=== PATIENT | female | born 1945 | race Caucasian/White ===

== ENCOUNTER 2024-01-14 12:00 | Observation (INO) | payer MEDICARE ==
[~2024-01-14] VITALS: Ht 165.1 cm; Wt 80.9 kg
[2024-01-14 12:41] LABS: BASOPHILS # (AUTO) 0.04 K/uL (0.00-0.20); BASOPHILS % (AUTO) 0.5 % (0.0-5.0); EOSINOPHILS # (AUTO) 0.23 K/uL (0.00-0.70); HEMATOCRIT 36.9 % (36-48); IMMATURE GRANULOCYTE ABSOLUTE 0.03 K/uL (0-1); LYMPHOCYTES % (AUTO) 38.5 % (21.0-51.0); MEAN CORPUSCULAR HEMOGLOBIN 32.7 pg (27.0-33.0); MEAN CORPUSCULAR HGB CONC 35.2 g/dL (32.0-36.0); MEAN CORPUSCULAR VOLUME 92.7 fL (79-99); MONOCYTES # (AUTO) 0.6 K/uL (0.1-1.0); MONOCYTES % (AUTO) 7.6 % (3.0-13.0); NEUTROPHILS # (AUTO) 3.9 K/uL (1.8-7.7); PLATELET COUNT (AUTO) 198 K/uL (130-400); RED BLOOD CELL COUNT(AUTO) 3.98 MIL/uL (4.00-5.50); RED CELL DISTRIBUTION WIDTH 12.4 % (11.0-15.5); WHITE BLOOD COUNT (AUTO) 7.7 K/uL (4.8-10.8)
[2024-01-14 12:55] LABS: ALBUMIN 3.7 g/dL (3.5-5.0); CREATININE 0.9 mg/dL (0.5-1.0); INR 0.96 (0.85-1.15); POTASSIUM 3.4 mmol/L (3.5-5.1); PROTHROMBIN TIME 10.4 SEC (9.6-11.6)
[2024-01-14 12:56] LABS: PARTIAL THROMBOPLASTIN TIME 30.8 SEC (26.3-35.5)
[2024-01-14 12:59] LABS: APPEARANCE,URINE CLEAR (CLEAR); BILIRUBIN,URINE NEGATIVE (NEGATIVE); COLOR,URINE YELLOW (YELLOW); GLUCOSE, URINE (UA) NEGATIVE (NEGATIVE); KETONES,URINE NEGATIVE (NEGATIVE); LEUKOCYTE ESTERASE ,URINE NEGATIVE Leu/uL (NEGATIVE); NITRATE,URINE NEGATIVE (NEGATIVE); OCCULT BLOOD,URINE NEGATIVE (NEGATIVE); PH,URINE 6.5 (5.0-8.0); PROTEIN,URINE 10 mg/dL (NEGATIVE); UROBILINOGEN,URINE 0.2 mg/dL (0.2-1.0)
[2024-01-14 13:00] VITALS: BP 145/58; PULSE 62; RESP 18
[2024-01-14 13:04] LABS: ADD UA MICROSCOPIC YES
[2024-01-14 13:08] LABS: MUCUS,URINE RARE LPF (None Seen); SQUAMOUS EPITHELIAL CELL,UR RARE /HPF (0-2)
[2024-01-14] MEDS ORDERED: ASCO500T20 PO (14:04)
[2024-01-14] MEDS ORDERED: ALPR0.255 PO (14:04)
[2024-01-14] MEDS ORDERED: OMEP20CA12 PO (14:04)
[2024-01-14] MEDS ORDERED: ATOR40TA71 PO (14:04)
[2024-01-14] MEDS ORDERED: ACET-2743 PO (14:04)
[2024-01-14] MEDS ORDERED: PROP40TA7 PO (14:04)
[2024-01-14] MEDS ORDERED: HYDR25TA PO (14:04)
[2024-01-14] MEDS ORDERED: CALC1TAB2 PO (14:04)
[2024-01-14] MEDS ORDERED: DICL100G60 TP (14:04)
[2024-01-14] MEDS ORDERED: ESCI-8 PO (14:04)
[2024-01-14] MEDS ORDERED: ACET-3540 PO (14:04)
[2024-01-14] MEDS ORDERED: ASPI-1443 PO (14:04)
[2024-01-14] MEDS ORDERED: NABU-141 PO (14:04)
[2024-01-16] VITALS (34 sets, daily range): BP systolic 97–159; BP diastolic 43–80; PULSE 46–78; RESP 13–20; O2SAT 98
[2024-01-16] MEDS: FAMOTIDINE 20MG VIAL IV ONE (06:45)
[2024-01-16] MEDS: acetaMINOPHEN 1,000 MG/100 ML VIAL IV ONE (06:45)
[2024-01-16] MEDS ORDERED: KETAMINE 50MG/ML SYRINGE 50 MG/ML DISP.SYRIN ONE (06:48)
[2024-01-16] MEDS ORDERED: FENTANYL CITRATE PF 50 MCG/1 ML 2ML VIAL ONE (06:55)
[2024-01-16] MEDS ORDERED: LIDOCAINE PF 100MG/5ML (2%) SYRINGE 5ML ONE (06:55)
[2024-01-16] MEDS ORDERED: PROPOFOL 10 MG/ML 20ML VIAL IV ONE (06:55)
[2024-01-16] MEDS ORDERED: ROCURONIUM BROMIDE 10MG/1ML 5ML VL ONE (06:55)
[2024-01-16] MEDS: CLINDAMYCIN 900MG/6ML INJ IVPB ONE (08:00)
[2024-01-16] MEDS: CLINDAMYCIN IVPB 900MG/50ML 0 ML IV ONE (08:04)
[2024-01-16] MEDS: CLINDAMYCIN IVPB 900MG/50ML 50 ML IV ONE (08:04)
[2024-01-16] MEDS: ceFAZolin SODIUM 2 GM VIAL ONE (08:05)
[2024-01-16] MEDS: LACTATED RINGERS 1000ML 1,000 ML IV ONE (08:05)
[2024-01-16] MEDS ORDERED: ONDANSETRON 4MG INJ ONE (08:14)
[2024-01-16] MEDS ORDERED: DEXAMETHASONE SOD PHOSPHATE 10MG/ML 1ML VIAL ONE (08:14)
[2024-01-16] MEDS ORDERED: GLYCOPYRROLATE 0.2 MG/ML 5 ML VIAL ONE (08:20)
[2024-01-16] MEDS ORDERED: EPHEDRINE SULFATE 50 MG/ML AMPULE ONE (08:22)
[2024-01-16] MEDS: TRANEXAMIC ACID 1000MG/10ML ONE (08:25)
[2024-01-16] MEDS: KETOROLAC 30MG VIAL (30MG/ML) ONE (09:15)
[2024-01-16] MEDS: ROPivacaine 0.5% 5MG/ML 30ML ONE (09:15)
[2024-01-16] MEDS ORDERED: CYCLOBENZAPRINE HCL 10 MG TABLET PO PRN (10:00)
[2024-01-16] MEDS ORDERED: FERROUS FUMARATE 324 MG TABLET PO PRN (10:00)
[2024-01-16] MEDS: TRANEXAMIC ACID 1000MG/10ML IV ONE (10:00)
[2024-01-16] MEDS ORDERED: POTASSIUM CHLORIDE 10% ELIXIR 20 MEQ/15 ML UDCUP PO PRN (10:00)
[2024-01-16] MEDS ORDERED: POTASSIUM CHLORIDE 20MEQ/100ML 100 ML IV PRN (10:00)
[2024-01-16] MEDS ORDERED: ONDANSETRON 4MG INJ IVP PRN (10:00)
[2024-01-16] MEDS ORDERED: CALCIUM CARB 500MG PO PRN (10:00)
[2024-01-16] MEDS: KETOROLAC 15MG/ML VIAL (15MG/ML) IV SCH (10:48)
[2024-01-16] MEDS: KETOROLAC 15MG/ML VIAL (15MG/ML) ONE (10:48)
[2024-01-16] MEDS: TRAMADOL HCL 50 MG TABLET PO PRN (12:52)
[2024-01-16] MEDS: GABAPENTIN 100 MG CAPSULE PO SCH (12:52)
[2024-01-16] MEDS: TRAMADOL HCL 50 MG TABLET ONE (12:54)
[2024-01-16] MEDS: GABAPENTIN 100 MG CAPSULE ONE (12:54)
[2024-01-16] MEDS: 0.9%NACL 1000ML 1,000 ML IV SCH (14:00)
[2024-01-16] MEDS: KETOROLAC 15MG/ML VIAL (15MG/ML) IV PRN (14:30)
[2024-01-16] MEDS ORDERED: NON-FORMULARY MEDICATION 1 EACH (Omeprazole 20 MG) PO PRN (15:00)
[2024-01-16] MEDS: CLINDAMYCIN IVPB 900MG/50ML 50 ML IV SCH (15:52)
[2024-01-16] MEDS: HYDROCODONE/ACETAMINOPHEN 5/325 MG TAB PO PRN (16:47)
[2024-01-16] MEDS: ATORVASTATIN 40 MG TABLET PO SCH (21:09)
[2024-01-16] MEDS: DOCUSATE SODIUM 100 MG CAP PO SCH (21:09)
[2024-01-17] VITALS: BP 117/70; PULSE 60; RESP 20
[2024-01-17 04:00] VITALS: BP 107/50; PULSE 58; RESP 20
[2024-01-17 04:41] LABS: HEMATOCRIT 30.5 % (36-48); MEAN CORPUSCULAR HEMOGLOBIN 33.2 pg (27.0-33.0); MEAN CORPUSCULAR HGB CONC 35.1 g/dL (32.0-36.0); MEAN CORPUSCULAR VOLUME 94.7 fL (79-99); RED BLOOD CELL COUNT(AUTO) 3.22 MIL/uL (4.00-5.50); RED CELL DISTRIBUTION WIDTH 12.4 % (11.0-15.5); WHITE BLOOD COUNT (AUTO) 11.8 K/uL (4.8-10.8)
[2024-01-17 04:55] LABS: CREATININE 1.1 mg/dL (0.5-1.0); POTASSIUM 3.6 mmol/L (3.5-5.1)
[2024-01-17] MEDS: KCL 20 MEQ ERTAB PO PRN (06:40)
[2024-01-17 07:56] VITALS: BP 123/48; PULSE 60; RESP 18
[2024-01-17 08:00] VITALS: O2SAT 96
[2024-01-17] MEDS: HYDROCHLOROTHIAZIDE 25 MG TABLET PO SCH (08:23)
[2024-01-17] MEDS: ASCORBIC ACID 500 MG TAB PO SCH (08:23)
[2024-01-17] MEDS: ASPIRIN 325MG EC TAB PO SCH (08:24)
[2024-01-17] MEDS: PANTOPRAZOLE 40 MG TAB DR PO SCH (08:24)
[2024-01-17] MEDS: PROPRANOLOL HCL 20 MG TAB PO SCH (08:24)
[2024-01-17] MEDS: POLYETHYLENE GLYCOL 3350 17 GM POWD.PACK PO SCH (08:25)
[2024-01-17] MEDS: VITAMIN D3 PO SCH (08:30)
[2024-01-17] MEDS: Escitalopram Oxalate 10 MG PO SCH (08:30)
[2024-01-17] MEDS: CALCIUM CARBONATE PO SCH (08:30)
[2024-01-17] MEDS ORDERED: NON-FORMULARY MEDICATION 1 EACH (Propranolol HCl 40 MG) PO SCH (09:00)
[2024-01-17 11:23] VITALS: BP 109/55; PULSE 59; RESP 18
[2024-01-17 16:46] VITALS: BP 101/50; PULSE 58; RESP 16
[2024-01-17] MEDS ORDERED: DOCU-116 PO (16:58)
[2024-01-17] MEDS ORDERED: HYDR-4060 PO (16:58)
[2024-01-17] MEDS ORDERED: ASPI-891 PO (16:58)
[2024-01-17] MEDS ORDERED: CYCL-309 PO (16:58)
[2024-01-17] MEDS ORDERED: GABA100C PO (16:58)
[2024-01-19] MEDS ORDERED: BisaCODYL 10 MG SUPP.RECT RC PRN (10:00)
== END 2024-01-17 18:15 | disposition home health service (06) ==
LOC: DAHIP 01-16 05:44 → 4AH 01-16 13:40
PROVIDERS: ADMIT Student in an Organized Health Care Education/Training Program; ATTEND Student in an Organized Health Care Education/Training Program
DX: M17.11 Unilateral primary osteoarthritis, right knee (principal); G89.18 Other acute postprocedural pain; I10 Essential (primary) hypertension; E78.5 Hyperlipidemia, unspecified; K21.9 Gastro-esophageal reflux disease without esophagitis; G43.909 Migraine, unspecified, not intractable, without status migrainosus; Z86.2 Personal history of diseases of the blood and blood-forming organs and certain disorders involving the immune mechanism; Z79.899 Other long term (current) drug therapy; Z86.73 Personal history of transient ischemic attack (TIA), and cerebral infarction without residual deficits; Z90.710 Acquired absence of both cervix and uterus
CPT/HCPCS: 82040; 80048 ×2; 85025; 85610; 85730; 87086; 84134; 86140; 81001; 36415 ×2; 87641; 64447; 96376 ×2; 96365; 96375; 27447; 73560; 97161; 97116 ×3; 97530 ×4; 96366; 85027; G0378 ×27; A9270; A4223 ×3; A4663; J7030; A4215 ×2; J7120; J3490 ×11; J3010; J1100; J2001; J2704; J2405; J1885 ×5; J2795; C1713 ×2; G0168; C1776 ×2; A4649 ×4; A4930; A6255; A5120; A4657; A4222; A4221; A4216; G0379; J0690

== ENCOUNTER 2025-05-25 15:03 | Emergency (ER) | payer MEDICARE ==
[~2025-05-25] VITALS: Ht 165.1 cm; Wt 79.4 kg
[~2025-05-25 15:03] MED LIST: ALPR0.255 PO; ASCO500T20 PO; ASPI-891 PO; ATOR40TA71 PO; CALC1TAB2 PO; CYCL-309 PO; DICL100G60 TP; DOCU-116 PO; ESCI-8 PO; GABA100C PO; HYDR-4060 PO; HYDR25TA PO; OMEP20CA12 PO; PROP40TA7 PO
--- NOTE | 2025-05-25 15:31 | EKG ---
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
[2025-05-25 15:45] LABS: IMMATURE GRANULOCYTE ABSOLUTE 0.04 K/uL (0-1); NUCLEATED RED BLOOD CELLS 0.0 % (0.0-0.19); PLATELET COUNT (AUTO) 235 K/uL (130-400); RED BLOOD CELL COUNT(AUTO) 4.45 MIL/uL (4.00-5.50); RED CELL DISTRIBUTION WIDTH 12.3 % (11.0-15.5); WHITE BLOOD COUNT (AUTO) 10.4 K/uL (4.8-10.8)
[2025-05-25 15:53] LABS: CREATININE 0.9 mg/dL (0.5-1.0); GLOMERULAR FILTR. RATE CALC 66.0 mL/min (>90); GLUCOSE,RANDOM 92.0 mg/dL (70-105); SODIUM SERUM 138.0 mmol/L (136-145); UREA NITROGEN, BLOOD 18.0 mg/dL (7-18)
--- NOTE | 2025-05-25 16:36 | ERN ---
General Chief Complaint: Multiple Complaints Stated Complaint: LLE SWELLING, JAW PAIN, BACK PAIN Time Seen by MD: 15:12 Source: patient History of Present Illness Initial Comments Ms Johns, 79F with past medical history of hypothyroidism, hypertension, hyperlipidemia, Lyme disease came to ED with lots of back pain and swelling of both the legs since 3 weeks. She reports she had been following her primary care physician for bilateral swelling of the legs and she was kept on torsemide with very mild improvement and today she have lots of back pain on a scale of 6 x 10 at rest and 8 x 10 on movement associated with shortness of breath that prompted her to come to the ER. She also said she was advised to come to the ER by the PA of clinic to check for any DVT. She reports jaw pain on a scale of 4 x 10. No history of coronary artery disease or peripheral vascular disease or chronic kidney disease or trauma to the back or fall. Timing/Duration: getting worse Severity: moderate Modifying Factors: improves with rest Associated Symptoms: shortness of breath Allergies: Coded Allergies: cephalexin (Unverified Allergy, Mild, RASH, 01/14/24) [id number] Reductase Inhibitor (Unverified Allergy, Unknown, 01/14/24) MYALGIA Home Meds Active Scripts Lidocaine (Lidocaine Pain Relief) 4 % Adh..patch, 1 PATCH TP DAILY for 7 Days, #7 PATCH 0 Refills Prov:DIEGO GONZALEZ MD 05/25/25 Meloxicam, Submicronized (Meloxicam) 10 Mg Capsule, 10 MG PO BID for 10 Days, #20 CAP Prov:DIEGO GONZALEZ MD 05/25/25 Docusate Sodium (Colace) 100 Mg Capsule, 100 MG PO BID for 30 Days, #60 CAP 0 Refills Prov:ANTONELLA ABRAHAM MD 01/17/24 Hydrocodone/Acetaminophen (Hydrocodon-Acetaminophen 5-325) 5 Mg-325 Mg Tablet, 1-2 TAB PO Q6HPRN PRN for MODERATE/SEVERE PAIN LEVEL, #56 TAB 0 Refills Prov:ANTONELLA ABRAHAM MD 01/17/24 Gabapentin (Neurontin) 100 Mg Capsule, 100 MG PO TID, #90 CAP 0 Refills Prov:ANTONELLA ABRAHAM MD 01/17/24 Cyclobenzaprine HCl (Cyclobenzaprine HCl) 10 Mg Tablet, 5 MG PO Q8H PRN for MUSCLE SPASMS, #45 TAB 0 Refills Prov:ANTONELLA ABRAHAM MD 01/17/24 Aspirin (Aspirin EC) 325 Mg Tablet.dr, 325 MG PO DAILY, #30 TAB 0 Refills Prov:ANTONELLA ABRAHAM MD 01/17/24 Reported Medications Diclofenac Sodium (Diclofenac Sodium) 1 % Gel..gram., 1 APPL TP AD PRN for PAIN 01/14/24 Alprazolam (Alprazolam) 0.25 Mg Tablet, 0.25 MG PO AD PRN for ANXIETY, TAB 01/14/24 Escitalopram Oxalate (Escitalopram Oxalate) 10 Mg Tablet, 10 MG PO DAILY, TAB 01/14/24 Ascorbic Acid (Vitamin C) 500 Mg Tablet, 500 MG PO DAILY, TAB 01/14/24 Omeprazole (Omeprazole) 20 Mg Capsule.dr, 20 MG PO DAILY PRN for HEARTBURN, CAP 01/14/24 Propranolol HCl (Propranolol HCl) 40 Mg Tablet, 40 MG PO DAILY, TAB 01/14/24 Hydrochlorothiazide (Hydrochlorothiazide) 25 Mg Tablet, 25 MG PO DAILY, TAB 01/14/24 Atorvastatin Calcium (Atorvastatin Calcium) 40 Mg Tablet, 40 MG PO HS, TAB 01/14/24 Calcium Carbonate/Vitamin D3 (Caltrate 600 + D Tablet) 600 Mg Calcium-20 Mcg (800 Unit) Tablet, 1 EACH PO DAILY, TAB 01/14/24 Past Medical History Past Medical History: Anxiety, Arthritis, High Cholesterol, Hypertension Past Surgical History: None Respiratory: (+) short of breath Cardiovascular: (+) edema Musculoskeletal: (+) back pain Physical Exam General Appearance: (+) mild distress Orientation: (+) alert, (+) oriented x 3 Head/Face Trauma: No Eye: bilateral eye normal inspection Ear, Nose, Throat: (+) hearing grossly normal Neck: (+) normal inspection Respiratory: (+) chest non-tender, (+) lungs clear, (+) well ventilated Heart: (+) regular, (+) no gallop Vascular: (+) edema Gastrointestinal: (+) soft, (+) non-tender Breast Exam: (+) deferred Genital: (+) deferred Rectal: (+) deferred Back: (+) muscle spasm, (+) vertebral tenderness Extremities: (+) normal range of motion, (+) non-tender, (+) pedal edema, (+) swelling Neurologic/Psychiatric: (+) normal speech, (+) no motor defecits, (+) no sensory deficits Skin: (+) normal color Results Laboratory and Microbiology Lab and Micro Result Laboratory Tests Test 05/25/25 15:39 White Blood Count 10.4 K/uL (4.8-10.8) Red Blood Count 4.45 MIL/uL (4.00-5.50) Hemoglobin 14.4 g/dL (12.0-16.0) Hematocrit 40.1 % (36-48) Mean Corpuscular Volume 90.1 fL (79-99) Mean Corpuscular Hemoglobin 32.4 pg (27.0-33.0) Mean Corpuscular Hemoglobin Concent 35.9 g/dL (32.0-36.0) Red Cell Distribution Width 12.3 % (11.0-15.5) Platelet Count 235 K/uL (130-400) Mean Platelet Volume 10.0 fL (7.5-10.5) Immature Granulocyte % (Auto) 0.4 % (0-1) Neutrophils (%) (Auto) 57.4 % (40.0-77.0) Lymphocytes (%) (Auto) 30.6 % (21.0-51.0) Monocytes (%) (Auto) 9.0 % (3.0-13.0) Eosinophils (%) (Auto) 2.0 % (0.0-8.0) Basophils (%) (Auto) 0.6 % (0.0-5.0) Neutrophils # (Auto) 6.0 K/uL (1.8-7.7) Lymphocytes # (Auto) 3.2 K/uL (1.0-4.8) Monocytes # (Auto) 0.9 K/uL (0.1-1.0) Eosinophils # (Auto) 0.21 K/uL (0.00-0.70) Basophils # (Auto) 0.06 K/uL (0.00-0.20) Absolute Immature Granulocyte (auto 0.04 K/uL (0-1) Nucleated Red Blood Cells 0.0 % (0.0-0.19) Sodium Level 138 mmol/L (136-145) Potassium Level 3.1 mmol/L (3.5-5.1) L Chloride Level 99 mmol/L (101-111) L Carbon Dioxide Level 29 mmol/L (21-32) Blood Urea Nitrogen 18 mg/dL (7-18) Creatinine 0.9 mg/dL (0.5-1.0) Glomerular Filtration Rate Calc 66 mL/min (>90) Random Glucose 92 mg/dL (70-105) Total Calcium 9.1 mg/dL (8.5-10.1) B-Type Natriuretic Peptide 79 pg/mL (0-100) MDM Differential diagnoses: Degenerative osteoarthritis of lumbar vertebrae, lumbar spondylosis The patient came to ED with severe back pain and progressive swelling of the legs since 3 weeks and to rule out DVT as suggested by her care provider in the clinic In the ER, CBC, BMP, DOPPLER ULTRASOUND VENOUS LOWER EXTREMITY, CT lumbar spine, BNP was ordered The patient received Norflex, Ketoralac 10 mg IM and lidocaine patch for pain We rule out DVT and back pain is mostly due to chronic osteoarthritis which can be managed outpatient The patient is stable, the pain improved and she can be discharged home on meloxicam 7.5mg BID, Lidocaine patches ED Course Orders Procedure Category Date Status Time 12 Lead Ekg Tracing- EKG 05/25/25 Complete Technical 15:10 Ct Lumbar Spine W/O CT 05/25/25 Resulted Contrast 15:29 Cbc With Differential LAB 05/25/25 Complete 15:29 Basic Metabolic Panel LAB 05/25/25 Complete 15:29 B-Type Natriuretic LAB 05/25/25 Complete Peptide 15:29 Us Venous Doppler US 05/25/25 Resulted Bilateral 15:29 Orphenadrine Citrate PHA 05/25/25 Complete (Norflex) 15:30 Ketorolac 60mg/2ml PHA 05/25/25 Complete (Toradol 60mg/2ml) 15:30 Lidocaine (Lidocaine PHA 05/25/25 Complete Patch 4%) 15:30 Potassium Bicarb/Cit PHA 05/25/25 Complete Ac 25meq (K-Lyte Ta 16:00 Current Medications Medications (Trade) Dose Ordered Sig/Toro Route PRN Reason Start Time Stop Time Status Last Admin Dose Admin Ketorolac Tromethamine (toRADol 60MG/ 2ML) 60 mg ONCE ONCE IM 05/25/25 15:30 05/25/25 15:36 DC 05/25/25 17:15 Lidocaine (Lidocaine Patch 4%) 1 each ONCE ONCE TP 05/25/25 15:30 05/25/25 15:36 DC 05/25/25 17:16 Orphenadrine Citrate (Norflex) 60 mg ONCE ONCE IVP 05/25/25 15:30 05/25/25 15:36 DC 05/25/25 17:15 Potassium Bicarbonate (K-Lyte Tablet Eff 25 Meq Tablet.eff) 50 meq ONCE ONCE PO 05/25/25 16:00 05/25/25 16:03 DC 05/25/25 17:16 Vital Signs Date Time Temp Pulse Resp B/P (MAP) Pulse Ox O2 Delivery O2 Flow Rate FiO2 05/25/25 17:00 97.9 79 20 129/65 96 Room Air* 0 21 05/25/25 15:05 98.8 71 16 156/75 98 Room Air 0 DX & DISP Disposition: Discharge Departure Impression: Primary Impression: Osteoarthritis of lumbar spine Additional Impression: Lumbar spondylosis Critical Time: 30 minutes Condition: Stable Scripts Lidocaine (Lidocaine Pain Relief) 4 % Adh..patch 1 PATCH TP DAILY for 7 Days, #7 PATCH 0 Refills Prov: DIEGO GONZALEZ MD 05/25/25 Meloxicam, Submicronized (Meloxicam) 10 Mg Capsule 10 MG PO BID for 10 Days, #20 CAP Prov: DIEGO GONZALEZ MD 05/25/25 Additional Instructions: You were diagnosed with lumbar osteoarthritis, aware and tear condition of the lower spine that can cause back pain, stiffness, and limited movement. We have ruled out any clots in the venous system of lower limbs through Doppler ultrasound Take meloxicam 7.5 mg twice a day as needed for back pain, use lidocaine patches as needed for the pain Stay active as tolerated; avoid prolonged bedrest. Use heat or ice on the lower back for 15-20 minutes 2-3 times daily, gentle stretching and core strengthening exercises to help reduce pain. Maintain good posture and avoid heavy lifting or twisting Consult your primary care physician within 3 days for further follow up and management Return to the ER if there is new or worsening leg weakness or numbness, loss of bowel or bladder control, severe or worsening pain not relieved by medication, fever, unexplained weight loss or pain after trauma. Referrals: COOPER GALEANO MD (PCP) DIEGO GONZALEZ MD May 25, 2025 16:36
[2025-05-25 17:00] VITALS: BP 129/65; PULSE 79; RESP 20; TEMP 97.9; O2SAT 96
--- NOTE | 2025-05-25 17:13 | HMCIMG ---
EXAM: US for Deep Venous Thrombosis, bilateral Lower Extremity. CLINICAL HISTORY: Leg Pain and Swelling TECHNIQUE: Real-time ultrasound scan of the veins of the bilateral lower extremity with color Doppler flow, spectral waveform analysis and compression. COMPARISON: None provided. FINDINGS: DEEP VEINS: The common femoral, superficial femoral, and popliteal veins are echolucent and compressible. There is normal color Doppler flow throughout. The visualized calf veins appear patent. SOFT TISSUES: No popliteal fossa cyst or other abnormalities. IMPRESSION: 1. No evidence of deep venous thrombosis in the bilateral lower extremities. /[place]
[2025-05-25] MEDS: ORPHENADRINE 60MG/2ML IVP ONE (17:15)
[2025-05-25] MEDS: LIDOCAINE 4% ADH..PATCH TP ONE (17:16)
[2025-05-25] MEDS ORDERED: MELO10CA3 PO (17:21)
[2025-05-25] MEDS ORDERED: LIDO1ADH71 TP (17:21)
--- NOTE | 2025-05-25 17:25 | HMCIMG ---
EXAM: CT lumbar spine without intravenous contrast. CLINICAL HISTORY: Back pain. TECHNIQUE: Axial computed tomography images of the lumbar spine were obtained without intravenous contrast, with sagittal and coronal reformatted images. COMPARISON: None provided. FINDINGS: ALIGNMENT: Overall lumbar alignment is maintained without traumatic listhesis. There is grade I anterior spondylolisthesis of L5 over S1 associated with bilateral pars interarticularis defects at L5. BONES: No acute lumbar spine fracture is identified. No aggressive or destructive osseous lesion is seen. Opposing endplate irregularities and sclerosis are present at L2-L3 in keeping with chronic degenerative change. DISCS AND DEGENERATIVE CHANGES: There is advanced multilevel lumbar spondylosis with marked disc height loss from L2-L3 through L5-S1. Vacuum disc phenomenon is present at L2-L3, L3-L4, L4-L5, and L5-S1. At L2-L3 there is diffuse disc disease with a posterior central disc protrusion. Severe facet arthrosis is present from L3-L4 through L5-S1, most pronounced on the right side. 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 At L2-L3, diffuse disc disease with a posterior central disc protrusion results in spinal canal stenosis with bilateral lateral recess narrowing and neural foraminal stenosis, more pronounced on the left, with corresponding compression of the exiting nerve root on that side. SOFT TISSUES: Paraspinal soft tissues are unremarkable. 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 * Chronic multilevel degenerative changes, including vacuum disc phenomena and endplate sclerosis (L2-L3), without acute lumbar fracture or traumatic malalignment. /[place]
== END 2025-05-25 17:49 | disposition home or self-care (01) ==
LOC: EDH 15:03
DX: M47.816 Spondylosis without myelopathy or radiculopathy, lumbar region (principal); E03.9 Hypothyroidism, unspecified; I10 Essential (primary) hypertension; E78.00 Pure hypercholesterolemia, unspecified; F41.9 Anxiety disorder, unspecified; M19.90 Unspecified osteoarthritis, unspecified site; Z88.1 Allergy status to other antibiotic agents; Z88.8 Allergy status to other drugs, medicaments and biological substances; Z79.82 Long term (current) use of aspirin; Z79.899 Other long term (current) drug therapy
CPT/HCPCS: 99285; 93970; 96374; 72131; 96372; 80048; 83880; 85025; 36415; 93005; J1885; J2360